=== PATIENT | female | born 1970 | race Caucasian/White ===

== ENCOUNTER 2018-07-20 15:03 | Outpatient (REF) | payer MEDICAID, SELFPAY ==
--- NOTE | 2018-07-20 14:10 | PAPFT_PTH ---
PATIENT: Violette Trevizo LOC: [facility] U#:[id number] AGE/SX: 48/F ROOM: RE07/20/[address]: RIP Norman : 1970 BED: DIS: 07/20/2018 SPEC #: [id number] RECD: 07/20/18 17:03 STATUS: JOAO MARINELLI #: [id number] LEONELA: 07/20/18 14:[address]: Mckenzie Shirley DEPT: [facility] Cytology RECD BY: Rosalind Song ENTERED: 07/20/18 17:04 SP TYPE: PAPFT ANN MARIE DR: Teena Quiroz MD Tissues: 1 - CX/ENDOCX FOR PAP SMEARS Procedures: PAP THIN PREP/UVM Screening HPV DNA PROBE Comments: [id number]
== END 2018-07-20 15:23 ==
LOC: LBN 15:03
PROVIDERS: PCP Family Medicine; Visit Provider Nurse Practitioner Family
DX: Z12.4 Encounter for screening for malignant neoplasm of cervix (principal); Z11.51 Encounter for screening for human papillomavirus (HPV)
CPT/HCPCS: 88142; 87624

== ENCOUNTER 2018-08-06 00:50 | Outpatient (CLI) | payer MEDICAID, SELFPAY ==
--- NOTE | 2018-08-06 10:30 | DI.MAMMO_ITS ---
SYMPTOM/DIAGNOSIS: SCREENING, Z12.31 MAMMOGRAMS: Mammograms were interpreted according to the usual protocol including computer analysis with CAD system, tomosynthesis and C view imaging. Comparison with prior examinations. Breast density C. No suspicious masses or microcalcifications are seen. There is no definite evidence of malignancy. IMPRESSION: Negative mammogram. Routine screening is recommended. Category I. MQSA ASSESSMENT OF FINDINGS: Negative. Category 1. Patient will receive a letter notifying them of these results. Bi-RADS category C. The breasts are heterogeneously dense, which may obscure small masses.
== END 2018-08-06 01:10 ==
PROVIDERS: PCP Family Medicine; Visit Provider Nurse Practitioner Family
DX: Z12.31 Encounter for screening mammogram for malignant neoplasm of breast (principal)
CPT/HCPCS: 77063; 77067

== ENCOUNTER 2019-01-30 13:11 | Emergency (ER) | payer MEDICAID, SELFPAY ==
[2019-01-30 13:13] VITALS: BP 122/77; PULSE 68; RESP 16; O2SAT 98
--- NOTE | 2019-01-30 13:23 | DI.RAD_ITS ---
SYMPTOMS/DIAGNOSIS: PAIN S/P INVERSION RIGHT ANKLE: Comparison is made with right foot dated November,. No fracture or ankle mortise widening is seen. There is some spurring at the anterior aspect of the distal tibia. No talar dome defect is seen. IMPRESSION: No acute abnormality.
--- NOTE | 2019-01-30 13:23 | W.ED.GENAD ---
Discharge Plan Disposition Patient Disposition: HOME Condition: Stable Discharge Details Chief Complaint: Orthopedic Clinical Impression: Right ankle sprain Primary Care Provider: Teena Quiroz ED Provider: Ritesh Jung Home Meds and New Rx's Prescriptions: Continued norethindrone acetate 5 mg tablet 5 mg PO DAILY Qty: 90 RF: 3 cyclobenzaprine 5 mg tablet 5 mg PO TID PRN (Reason: muscle spasm) Qty: 60 RF: 0 multivitamin 1 EACH tablet 1 ea PO DAILY RF: 0 loratadine [Claritin Liqui-Gel] 10 MG capsule 10 mg PO DAILY Qty: 90 RF: 4 ibuprofen 600 mg tablet 600 mg PO TID PRN (Reason: pain) Qty: 90 RF: 3 calcium carbonate [Calcium 600] 600 mg calcium (1,500 mg) tablet 600 mg PO BID Qty: 60 RF: 2 cholecalciferol (vitamin D3) 2,000 unit capsule 4,000 unit PO DAILY Qty: 60 RF: 2 cetirizine 10 mg tablet 10 mg PO DAILY Qty: 30 RF: 11 ascorbic acid (vitamin C) [Vitamin C] 500 MG tablet,chewable 500 mg PO DAILY RF: 0 Discharge Instructions Instructions: Ankle Sprain (ED) Additional Instructions: if still in pain in a week see your primary care provider for reevaluation Medical Decision Making 48 yo female comes in with right ankle pain. She was waering sandles at work and got out of a truck and inverted the ankle. HAs had pain over lateral malleolus since so came here. Denies loc or head pain and no neck pain. Has full rom of the ankle withpain over lateral malleolus. Will xray to eval for fx, likely sprain. intact sensation and pulses. no acute findings on my read and wet read by Dr. Bolden. Advised f/u with pcp in a week and return precautions given. is bearing weight with minimal limp so doubt lisfranc injury Differential Diagnosis sprain, strain, fx Imaging Data Radiologic Study: Attestation: I personally reviewed and interpreted this imaging study as follows: Imaging: X-Ray Radiologist's impression: no acute findings HPI General Mode of arrival: ambulatory. Date/Time Provider Initiated Documentation: 01/30/19 13:16. Limitations to Documentation: no limitations. Information obtained by: patient. History of Present Illness 48 year old F presents to the emergency department with the chief complaint of pain s/p rolling ankle on Monday, described as moderate, Quality is described as aching, and is localized to the right and lower extremity. Patient reports no radiation. Patient started experiencing this day(s) (3) and it has been constant. Rest improves symptom(s), Movement worsens symptoms . Patient notes no other symptoms.. Related Data Home Medications Medication Instructions Recorded Confirmed multivitamin 1 ea PO DAILY tab 11/06/12 01/30/19 ascorbic acid (vitamin C) [Vitamin 500 mg PO DAILY 08/30/14 01/30/19 C] loratadine [Claritin Liqui-Gel] 10 mg PO DAILY #90 tab 12/01/17 01/30/19 ibuprofen 600 mg tablet 600 mg PO TID PRN #90 tab 04/16/18 01/30/19 calcium carbonate 600 mg calcium 600 mg PO BID #60 tab 05/05/18 01/30/19 (1,500 mg) tablet cholecalciferol (vitamin D3) 2,000 4,000 unit PO DAILY #60 cap 05/05/18 01/30/19 unit capsule norethindrone acetate 5 mg tablet 5 mg PO DAILY #90 tab 07/20/18 01/30/19 cetirizine 10 mg tablet 10 mg PO DAILY #30 tab 12/19/18 01/30/19 cyclobenzaprine 5 mg tablet 5 mg PO TID PRN #60 tab 01/10/19 01/30/19 Previous Rx's Medication Instructions Recorded loratadine [Claritin Liqui-Gel] 10 mg PO DAILY #90 tab 12/01/17 ibuprofen 600 mg tablet 600 mg PO TID PRN #90 tab 04/16/18 calcium carbonate 600 mg calcium 600 mg PO BID #60 tab 05/05/18 (1,500 mg) tablet cholecalciferol (vitamin D3) 2,000 4,000 unit PO DAILY #60 cap 05/05/18 unit capsule norethindrone acetate 5 mg tablet 5 mg PO DAILY #90 tab 07/20/18 cetirizine 10 mg tablet 10 mg PO DAILY #30 tab 12/19/18 cyclobenzaprine 5 mg tablet 5 mg PO TID PRN #60 tab 01/10/19 Allergies Allergy/AdvReac Type Severity Reaction Status Date / Time cephalexin Allergy Intermediate RASH, LEGS Verified 01/30/19 13:16 RED AND HOT Penicillins AdvReac Mild YEAST Verified 01/30/19 13:16 INFECTION General Stated Complaint: Orthopedic CLAU: 4 Review of Systems Review of Systems All systems reviewed & are unremarkable except as noted in HPI and below Constitutional Denies chills, Denies fever(s) and Denies weakness ENT Denies change in voice Cardiovascular Denies chest pain and Denies dyspnea Respiratory Denies cough and Denies dyspnea Gastrointestinal Denies abdominal pain, Denies nausea and Denies vomiting Musculoskeletal Denies joint swelling Neurologic Denies weakness [facility] Medical History (Updated 07/20/18 @ 14:05 by Mckenzie Shirley NP) Anxiety (Chronic) Appendicitis (Resolved) Attention deficit hyperactivity disorder, combined type (Acute) Cervical high risk HPV (human papillomavirus) test positive (Acute 08/19/16) Contraception (Acute 07/17/15) IUD surveillance (Acute 02/18/14) 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 Low back pain (Acute) MRI-L5-S1 disc bulge Lumbago (Acute) MRI-L5-S1 disc bulge Nicotine addiction (Chronic) Seasonal allergic rhinitis (Acute 12/01/17) Smoker (Acute) Surgical History (Updated 07/20/18 @ 14:04 by Mckenzie Shirley NP) Appendectomy Social History Smoking/Tobacco Use Status: Current every day Tobacco Type: cigarettes Alcohol Intake: current Alcohol Intake frequency: a few times a month Drug use: Never Do you feel safe at home: Yes Do you feel safe in your relationship?: Yes Exam Const General: no acute distress Orientation: alert HENMT Head: normal to inspection Ears: external ears normal General nose exam: external nose normal Mouth: moist mucous membranes Eyes General: appearance normal, both eyes and all related structures Neck Neck: normal visual inspection Resp Effort & Inspection: normal respiratory effort and able to speak in complete sentences Cardio Rate: regular rate Skin General skin exam: no rashes or lesions noted Neuro General: alert and oriented x3 Extrem General: normal to inspection and full ROM Psych Mental Status: mental status grossly normal Course Vital Signs Pulse 68 01/30/19 13:13 Respiratory Rate 16 01/30/19 13:13 Blood Pressure 122/77 01/30/19 13:13 Pulse Oximetry 98 01/30/19 13:13 Pulse 68 01/30/19 13:13 Respiratory Rate 16 01/30/19 13:13 Respiratory Effort Non-Labored 01/30/19 13:16 Blood Pressure 122/77 01/30/19 13:13 Blood Pressure Position Sitting 01/30/19 13:13 Pulse Oximetry 98 01/30/19 13:13 Oxygen Delivery Method Room Air 01/30/19 13:13 Oxygen Flow Rate 0 01/30/19 13:13
== END 2019-01-30 14:30 | disposition home or self-care (01) ==
LOC: ER 14:18
PROVIDERS: Emergency Provider Emergency Medicine; PCP Family Medicine
DX: S93.401A Sprain of unspecified ligament of right ankle, initial encounter (principal); X50.9XXA Other and unspecified overexertion or strenuous movements or postures, initial encounter
CPT/HCPCS: 29515; 99283; 73610; L1902

== ENCOUNTER 2019-03-04 12:07 | Outpatient (CLI) | payer MEDICAID, SELFPAY ==
--- NOTE | 2019-03-04 12:30 | DI.RAD_ITS ---
EXAM: XR ANKLE RT COMPLETE INDICATION: pain S99.919A INJURY ANKLE. COMPARISON: XR ANKLE RT COMPLETE from 01/30/2019 TECHNIQUE: 2D digital imaging was performed. FINDINGS: Three views were obtained. The ankle mortise is well maintained. Minimal marginal osteophyte format ion the distal tibia noted. No other bony abnormality seen. IMPRESSION:
== END 2019-03-04 12:27 ==
PROVIDERS: PCP Family Medicine; Visit Provider Internal Medicine
DX: M25.571 Pain in right ankle and joints of right foot (principal); S99.911A Unspecified injury of right ankle, initial encounter; M25.771 Osteophyte, right ankle
CPT/HCPCS: 73610

== ENCOUNTER 2019-03-06 11:13 | Outpatient (CLI) | payer MEDICAID, SELFPAY ==
--- NOTE | 2019-03-06 13:46 | DI.MRI_ITS ---
EXAM: MR LOWER JOINT RT WO CLINICAL HISTORY: PAIN, SUBLUXATION OF RT ANKLE JOINT, S93.01XA. TECHNIQUE: Multiplanar multisequence MRI was performed. COMPARISON: XR ANKLE RT COMPLETE from 03/04/2019 FINDINGS: Marrow signal is normal. There is lateral soft tissue edema. The peroneal tendons appear intact. The Achilles as well as flexor and extensor tendons also appear intact. No talar dome defect is see n. IMPRESSION: Lateral soft tissue edema and joint effusion. No tendon tear is seen.
== END 2019-03-06 11:33 ==
PROVIDERS: PCP Family Medicine; Visit Provider Orthopaedic Surgery
DX: M25.571 Pain in right ankle and joints of right foot (principal); S93.01XA Subluxation of right ankle joint, initial encounter; M79.89 Other specified soft tissue disorders; M25.471 Effusion, right ankle
CPT/HCPCS: 73721

== ENCOUNTER 2019-03-11 10:44 | Day surgery (SDC) | payer MEDICAID, SELFPAY ==
[2019-03-11 11:12] VITALS: BP 126/65; PULSE 77; RESP 16; TEMP 36.7; O2SAT 98
[2019-03-11] MEDS: Lactated Ringers 1,000 ML 80 ML IV (11:40)
--- NOTE | 2019-03-11 15:17 | NUR.NOTE ---
Nursing Note: 1450: Pt. states she has been waiting a long time and is getting hangry , would like to go home and reschedule for another day when OR is not so busy. Dr. Lucas, and Hermann Castle RN notified.IV DCd. Pt. changed self and ambulated from DSU accompanied by daughters, Elvira and Soni.
== END 2019-03-11 14:50 | disposition home or self-care (01) ==
LOC: SUR 10:45
PROVIDERS: PCP Family Medicine; Visit Provider Orthopaedic Surgery
DX: Z53.09 Procedure and treatment not carried out because of other contraindication (principal)
CPT/HCPCS: 81025; 99211

== ENCOUNTER 2019-03-25 07:00 | Day surgery (SDC) | payer MEDICAID, SELFPAY ==
[2019-03-25 07:10] VITALS: BP 117/60; PULSE 85; RESP 17; TEMP 36.6; O2SAT 96
[2019-03-25] MEDS: Lactated Ringers 1,000 ML 80 ML IV (07:40)
--- NOTE | 2019-03-25 08:25 | PDOC.DSDIS_ITS ---
Discharge Plan Disposition Patient Disposition: HOME Condition: Good Discharge Details Reason For Visit: Release first dorsal extensor compartment L wrist Attending Provider: Ismael Lucas Primary Care Provider: Teena Quiroz Home Meds and New Rx's Prescriptions: New hydrocodone-acetaminophen 5-325 mg tablet 1 tab PO Q6H PRN (Reason: pain) Qty: 7 RF: 0 No Action norethindrone acetate 5 mg tablet 5 mg PO DAILY Qty: 90 RF: 3 cyclobenzaprine 5 mg tablet 5 mg PO TID PRN (Reason: muscle spasm) Qty: 60 RF: 0 calcium carbonate [Calcium 600] 600 mg calcium (1,500 mg) tablet 600 mg PO BID Qty: 60 RF: 2 cholecalciferol (vitamin D3) 2,000 unit capsule 4,000 unit PO DAILY Qty: 60 RF: 2 cetirizine 10 mg tablet 10 mg PO DAILY Qty: 30 RF: 11 ibuprofen 600 mg tablet 600 mg PO TID PRN (Reason: pain) Qty: 90 RF: 3 ascorbic acid (vitamin C) [Vitamin C] 500 MG tablet,chewable 500 mg PO DAILY RF: 0 acetaminophen [Tylenol Extra Strength] 500 mg Tablet 500 mg PO Q4H PRNRF: 0 Discharge Instructions Additional Instructions: Elevate L wrist above heart level as much as possible overnite tonite. Wiggle fingers L hand 10 times/hour when awake to prevent swelling. Keep dressings and splint dry and intact for 5 days. After 5 days, remove splint AND dressings and begin to move L wrist and thumb. May use L hand as much as your discomfort allows. May shower and get incision wet after you remove the dressings in 5 days. Leave incision uncovered when it is dry and sealed. Follow up with in 2 weeks. Take ibuprofen 600 mg 3 times/day for mild pain. Take hydrocodone for breakthru pain, if needed. Referrals: Ismael Lucas MD [ [facility] STAFF PHYSICIAN] - (f/u in 2 weeks.) Equipment/Supplies: Splint Activity:: Activity as Tolerated Diet:: As Tolerated Discharge Orders Discharge Orders: Discharge Order (Routine); Ordered 03/25/19 Ordered By: Ismael Lucas DS: Diagnosis Discharge Diagnosis (1) Radial styloid tenosynovitis [de quervain]: Status: Acute
[2019-03-25] MEDS: ceFAZolin 1 GM/50 ML BAG IVPB (09:20)
--- NOTE | 2019-03-25 10:04 | W.PM.DSUDISC ---
Discharge Plan Disposition Patient Disposition: HOME Condition: Good Discharge Details Reason For Visit: Synovectomy peroneal tendons R Attending Provider: Ismael Lucas Primary Care Provider: Teena Quiroz Home Meds and New Rx's Prescriptions: New oxycodone-acetaminophen 5-325 mg tablet 1 tab PO Q6H PRN (Reason: pain) Qty: 14 RF: 0 Continued norethindrone acetate 5 mg tablet 5 mg PO DAILY Qty: 90 RF: 3 cyclobenzaprine 5 mg tablet 5 mg PO TID PRN (Reason: muscle spasm) Qty: 60 RF: 0 calcium carbonate [Calcium 600] 600 mg calcium (1,500 mg) tablet 600 mg PO BID Qty: 60 RF: 2 cholecalciferol (vitamin D3) 2,000 unit capsule 4,000 unit PO DAILY Qty: 60 RF: 2 cetirizine 10 mg tablet 10 mg PO DAILY Qty: 30 RF: 11 ibuprofen 600 mg tablet 600 mg PO TID PRN (Reason: pain) Qty: 90 RF: 3 ascorbic acid (vitamin C) [Vitamin C] 500 MG tablet,chewable 500 mg PO DAILY RF: 0 acetaminophen [Tylenol Extra Strength] 500 mg Tablet 500 mg PO Q4H PRNRF: 0 Discharge Instructions Additional Instructions: Elevate R ankle when sitting. Use crutches and and fracture-walking brace to ambulate. May put as much weight on R foot as your pain allows. Keep dressings dry and intact until follow up. Follow up with in one week. Take ibuprofen 600 mg 3 times/day for inflammation and swelling. Take oxycodone, if needed, for breakthru pain. Referrals: Ismael Lucas MD [ [facility] STAFF PHYSICIAN] - (f/u in one week.) Equipment/Supplies: Partial Weight Bearing Crutches and Splint Activity:: Activity as Tolerated Remove Dressings/Wound Care:: Do Not Remove Shower/Bathe:: Cover Diet:: As Tolerated Discharge Orders Discharge Orders: Discharge Order (Routine); Ordered 03/25/19 Ordered By: Ismael Lucas DS: Diagnosis Discharge Diagnosis (1) Radial styloid tenosynovitis [de quervain]: Status: Acute (2) Peroneal tendinitis, right leg: Status: Acute
[2019-03-25 10:18] VITALS: BP 127/57; PULSE 84; RESP 24; TEMP 36.6; O2SAT 94
[2019-03-25 10:23] VITALS: BP 126/60; PULSE 84; RESP 25; TEMP 36.6; O2SAT 94
[2019-03-25 10:28] VITALS: BP 129/59; PULSE 94; RESP 17; TEMP 36.6; O2SAT 96
[2019-03-25 11:25] VITALS: BP 114/63; PULSE 81; RESP 16; TEMP 36.5; O2SAT 95
--- NOTE | 2019-03-26 17:30 | ROE_ITS ---
DATE OF PROCEDURE: March 25, 2019 PREOPERATIVE DIAGNOSIS: Peroneal tendonitis, right. POSTOPERATIVE DIAGNOSIS: Same. PROCEDURE: Exploration of peroneal tendons, right, with synovectomy. ANESTHESIA: General. SURGEON: Ismael Lucas M.D. LICENSED PHYSICAL THERAPIST ASSISTANT: Tramaine Gaviria INDICATIONS: This is a 48-year-old white female with a several month history of right lateral ankle pain. Clinical diagnosis was peroneal tendonitis. MRI scan did not show obvious tear of the tendons . She was immobilized with a fracture walking boot, which only provided temporary relief of pain. E xploration of the peroneal tendons was recommended to determine the exact pathology and hopefully pro vide a relief of her pain. The risks and complications of the procedure were explained to the patien t in detail preoperatively. PROCEDURE: The patient was taken to the operating room on 03/25/19. She was placed supine on the ope rating table and a general anesthetic was administered. She was then turned to the right lateral pos ition on the operating table. Her position was maintained by a pneumatic beanbag. A proximal tourni quet was applied to the right thigh and then the right foot, ankle and lower leg were prepped and mignon ped free in the usual sterile fashion. Under proximal tourniquet control, an incision was made paralleling the peroneal tendons and posterio r to the fibula, beginning at the distal tip of the fibula and extending proximally about 5 or 6 inch es. The incision was carried down to the peroneal tendon sheath. The peroneal tendon sheath was the n longitudinally incised, leaving a cuff of tendon sheath attached to the fibula for repair. There w as noted to be abundant and abnormal amount of synovial fluid that had collected in the peroneal tend on sheath. There was also an obvious increased amount of abnormal synovium present. A synovectomy w as then performed using a rongeur, scalpel and forceps. When the synovectomy was complete I then ins pected the peroneal tendons all the way down to where they passed beneath the tip of the fibula. I w as unable to see a tear in the tendon. The tendons looked pretty healthy to me. The wound was there fore irrigated with Betadine and saline solution. The wound margins were infiltrated with 0.5% Demetrio ine with an epinephrine solution. The peroneal tendon sheath was repaired with a running, interlocke d #2-0 Vicryl suture. The skin and subcu were approximated with interrupted #4-0 Nylon sutures. The wound was dressed with Xeroform gauze, sterile gauze 4x4's, ABD pads, wrapped with a Kerlix bandage and then wrapped with an JERICHO bandage. The tourniquet was released. There was no bleeding to the primitivo ssings. She was then placed in an air cast fracture walking brace. Her anesthesia was reversed with out complications. She was discharged to the recovery room in good condition. The patient was discharged home from the Day Surgery Unit when fully recovered from her general anest hesia. She was given instructions to try to elevate her right foot on 1 to 2 pillows as much as poss ible for the next 48 hours. She may be weightbearing as tolerated to the right foot with crutches an d her fracture walking brace. She is to keep the dressings dry and intact until she follows up in my office in one week for a wound check and dressing change. She is instructed to take ibuprofen 600 m g p.o. t.i.d. for the next ten days to decrease swelling and inflammation. She was given a prescript ion of Percocet 5/325, one tablet every six hours, as needed, for breakthrough pain.
== END 2019-03-25 11:58 | disposition home or self-care (01) ==
PROVIDERS: PCP Family Medicine; Visit Provider Orthopaedic Surgery
PROC: (CPT 28088; principal; 2019-03-25 08:30)
DX: M76.71 Peroneal tendinitis, right leg (principal); M25.571 Pain in right ankle and joints of right foot
CPT/HCPCS: 28088; 28086; J0131; J0690; J1100; J1885; J2250; J2405; J3010; L4361

== ENCOUNTER 2019-08-26 10:10 | Outpatient (REF) | payer MEDICAID, SELFPAY ==
--- NOTE | 2019-08-26 09:45 | PAPFT_PTH ---
PATIENT: Violette Trevizo LOC: [facility] U#:[id number] AGE/SX: 49/F ROOM: RE08/26/[address]: RIP Norman : 1970 BED: DIS: 08/26/2019 SPEC #: [id number] RECD: 08/26/19 17:06 STATUS: JOAO YVES #: [id number] LEONELA: 08/26/19 09:[address]: Mckenzie Shirley DEPT: [facility] Cytology RECD BY: Rosalind Song ENTERED: 08/26/19 17:07 SP TYPE: PAPFT ANN MARIE DR: Teena Quiroz MD Tissues: 1 - CX/ENDOCX FOR PAP SMEARS Procedures: PAP THIN PREP/UVM Screening HPV DNA PROBE Comments: [id number]
== END 2019-08-26 10:30 ==
LOC: LBN 10:10
PROVIDERS: PCP Family Medicine; Visit Provider Nurse Practitioner Family
DX: Z12.4 Encounter for screening for malignant neoplasm of cervix (principal); Z11.51 Encounter for screening for human papillomavirus (HPV)
CPT/HCPCS: 88142; 87624

== ENCOUNTER 2019-09-04 14:33 | Outpatient (REF) | payer MEDICAID, SELFPAY ==
--- NOTE | 2019-09-04 13:45 | CER_PTH ---
PATIENT: Violette Trevizo LOC: [facility] U#:[id number] AGE/SX: 49/F ROOM: RE09/04/[address]: Gene Houston MD : 1970 BED: DIS: 09/04/2019 SPEC #: [id number] RECD: 09/04/19 16:36 STATUS: JOAO REQ #: [id number] LEONELA: 09/04/19 13:[address]: Gene Houston DEPT: Surgical Specimen RECD BY: Marky Oropeza ENTERED: 09/04/19 16:38 SP TYPE: CER OTHR DR: Teena Quiroz MD Tissues: 1 - ENDOCERVICAL BX/CURRETTE Procedures: GROSS AND MICRO LEVEL 4 Comments: [id number]
== END 2019-09-04 14:53 ==
LOC: LBN 14:33
PROVIDERS: PCP Family Medicine; Visit Provider Obstetrics & Gynecology
DX: N88.8 Other specified noninflammatory disorders of cervix uteri (principal); R87.810 Cervical high risk human papillomavirus (HPV) DNA test positive
CPT/HCPCS: 88305; 87480; 87510; 87660

== ENCOUNTER 2019-11-12 11:50 | Outpatient (CLI) | payer MEDICAID, SELFPAY ==
--- NOTE | 2019-11-12 11:45 | DI.RAD_ITS ---
EXAM: XR WRIST RT COMPLETE CLINICAL HISTORY: right wrist pain; ?ulnar based cyst TECHNIQUE: COMPARISON: No exams were available for comparison FINDINGS: Three views were obtained. There are osseous bodies located at the radial and ulnar aspects of the c arpus. There is marked deformity of the navicular bone which may reflect an old injury. There are s evere degenerative changes at the lunate capitate joint. There is widening of the navicular lunate j oint. IMPRESSION: Carpal deformity and degenerative changes as described above.
== END 2019-11-12 12:10 ==
PROVIDERS: PCP Family Medicine; Referring Provider Family Medicine; Visit Provider Physician Assistant
DX: M25.531 Pain in right wrist (principal); M19.031 Primary osteoarthritis, right wrist
CPT/HCPCS: 73110

== ENCOUNTER 2020-09-22 11:43 | Emergency (ER) | payer MEDICAID, SELFPAY ==
[2020-09-22 11:57] VITALS: BP 115/73; PULSE 70; RESP 16; TEMP 36.3; O2SAT 97
--- NOTE | 2020-09-22 12:24 | ED.GENADUL_ITS ---
Discharge Plan Disposition Patient Disposition: HOME Condition: Stable Discharge Details Clinical Impression: Open wound, hand Primary Care Provider: Teena Quiroz ED Provider: Dale Dugan Home Meds and New Rx's Prescriptions: Continued estradiol [Estrace] 0.01 % (0.1 mg/gram) cream 1 gm VG .COMPLEX Qty: 42.5 RF: 3 naproxen [EC-Naproxen] 500 mg tablet,delayed release (DR/EC) 500 mg PO BID Qty: 30 RF: 0 methocarbamol 500 mg tablet 500 mg PO QID Qty: 30 RF: 0 cetirizine 10 mg tablet 10 mg PO DAILY PRN (Reason: allergy symptoms) Qty: 90 RF: 4 ibuprofen 600 mg tablet 600 mg PO TID PRN (Reason: pain) Qty: 90 RF: 3 calcium carbonate [Calcium 600] 600 mg calcium (1,500 mg) tablet 600 mg PO BID Qty: 60 RF: 2 norethindrone acetate 5 mg tablet 5 mg PO DAILY Qty: 90 RF: 3 fluconazole [Diflucan] 150 mg tablet 150 mg PO ONCE Qty: 2 RF: 3 cholecalciferol (vitamin D3) 2,000 unit capsule 4,000 unit PO DAILY Qty: 60 RF: 2 ascorbic acid (vitamin C) [Vitamin C] 500 MG tablet,chewable 500 mg PO DAILY RF: 0 acetaminophen [Tylenol Extra Strength] 500 mg Tablet 500 mg PO Q4H PRNRF: 0 Discharge Instructions Instructions: Acute Wound Care (ED) Additional Instructions: No signs of infection. Wounds are 5 days old, do not require any closure now. Tetanus status updated today. Keep the areas clean and dry, you may apply topical antibiotic ointment. Please watch for new or worsening symptoms and return to the ER for any concern Medical Decision Making 50-year-old female presents with right hand injury that occurred 5 days ago. Tetanus status not up-to-date after reviewing records. Will update tetanus today. Extremely low suspicion for acute bony abnormality, no indication for x- ray. There are no signs of infection, no clear indication for oral antibiotics. Discussed routine wound care and encourage return to the ER for new or worsening symptoms. Patient has no additional questions or concerns and is comfortable with this plan. Medical Records Medical records reviewed: Yes I reviewed the patient's medical records. HPI General Mode of arrival: ambulatory . Date/Time Provider Initiated Documentation: 09/22/20 12:07 . Limitations to Documentation: no limitations . Information obtained by: patient . HPI Narrative: This is a 50-year-old female, [id number], presenting for a wound check of the right hand. She reports that 5 days ago when opening up a garage door she cut her hand on a chain. She initially thoroughly cleaned the laceration but wonders now if she should have had sutures. Reports minimal discomfort to palpation or with movement but denies any other injury, numbness, tingling, weakness. Does not believe that her tetanus status is up-to-date. Related Data Home Medications Medication Instructions Recorded Confirmed ascorbic acid (vitamin C) [Vitamin 500 mg PO DAILY 08/30/14 09/22/20 C] cholecalciferol (vitamin D3) 50 4,000 unit PO DAILY #60 cap 05/05/18 09/22/20 mcg (2,000 unit) capsule acetaminophen [Tylenol Extra 500 mg PO Q4H PRN 03/11/19 09/22/20 Strength] estradiol 1 gm VG .COMPLEX #42.5 gm 09/04/19 09/22/20 methocarbamol 500 mg tablet 500 mg PO QID #30 tab 12/13/19 09/19/20 naproxen 500 mg tablet,delayed 500 mg PO BID #30 tab 12/13/19 09/19/20 release calcium carbonate 600 mg calcium 600 mg PO BID #60 tab 09/15/20 09/22/20 (1,500 mg) tablet cetirizine 10 mg tablet 10 mg PO DAILY PRN #90 tab 09/15/20 09/22/20 ibuprofen 600 mg tablet 600 mg PO TID PRN #90 tab 09/15/20 09/22/20 fluconazole 150 mg tablet 150 mg PO ONCE #2 tab 09/22/20 09/22/20 norethindrone acetate 5 mg tablet 5 mg PO DAILY #90 tab 09/22/20 09/22/20 Previous Rx's Medication Instructions Recorded cholecalciferol (vitamin D3) 50 4,000 unit PO DAILY #60 cap 05/05/18 mcg (2,000 unit) capsule estradiol 1 gm VG .COMPLEX #42.5 gm 09/04/19 methocarbamol 500 mg tablet 500 mg PO QID #30 tab 12/13/19 naproxen 500 mg tablet,delayed 500 mg PO BID #30 tab 12/13/19 release calcium carbonate 600 mg calcium 600 mg PO BID #60 tab 09/15/20 (1,500 mg) tablet cetirizine 10 mg tablet 10 mg PO DAILY PRN #90 tab 09/15/20 ibuprofen 600 mg tablet 600 mg PO TID PRN #90 tab 09/15/20 fluconazole 150 mg tablet 150 mg PO ONCE #2 tab 09/22/20 norethindrone acetate 5 mg tablet 5 mg PO DAILY #90 tab 09/22/20 Allergies Allergy/AdvReac Type Severity Reaction Status Date / Time cephalexin Allergy Intermediate RASH, LEGS Verified 09/22/20 12:00 RED AND HOT latex Allergy Intermediate Skin Rash Verified 09/22/20 12:00 Penicillins AdvReac Mild YEAST Verified 09/22/20 12:00 INFECTION General Stated Complaint: Laceration CLAU: 4 Review of Systems Constitutional Constitutional: Denies fever(s) Musculoskeletal Musculoskeletal: Denies arthralgias, Denies numbness, Reports stiffness and Denies tingling Integumentary/Breasts Skin/Breast: Denies erythema and Denies rash Neurologic Neurologic: Denies numbness and Denies tingling PFSH Medical History Anxiety Appendicitis Attention deficit hyperactivity disorder, combined type Cervical high risk HPV (human papillomavirus) test positive (08/19/16) Contraception (07/17/15) IUD surveillance (02/18/14) 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 Low back pain MRI-L5-S1 disc bulge Lumbago MRI-L5-S1 disc bulge Nicotine addiction Seasonal allergic rhinitis (12/01/17) Smoker Surgical History Appendectomy Hx of carpal tunnel repair Right Hx of removal of cyst left foot Family History Mother Pancreatic cancer Grandmother Breast cancer maternal Social History Smoking/Tobacco Use Status: Current every day Tobacco Type: cigarettes Smoking risk assessment performed?: Yes Alcohol Intake: current Alcohol Intake frequency: a few times a month Alcohol type: beer Drug use: Never Substance use type: does not use Details: alcohol: t-1, 3 beers Current gender identity: female Do you feel safe at home: Yes Do you feel safe in your relationship?: Yes Female Reproductive History Menstrual control method: progestin IUCD History History 2 Para 2 Hx # Term Pregnancies Multiple births Hx # Pregnancies Ectopic pregnancies AB induced Hx Number of Living Children AB spontaneous Exam Const General: cooperative, healthy appearing, comfortable and no acute distress Orientation: alert and awake HENMT Head: normal to inspection, normocephalic and atraumatic Eyes General: appearance normal, both eyes and all related structures Conjunctivae: conjunctivae normal Neck Neck: normal visual inspection, trachea midline and supple Resp Effort & Inspection: normal respiratory effort and able to speak in complete sentences Cardio Rate: regular rate Rhythm: regular rhythm Skin General skin exam: no rashes or lesions noted Neuro General: patient alert, patient awake, moves all extremities and no focal motor deficits Cognition: normal cognition Speech: speech normal Gait: normal gait Motor: muscle tone normal throughout Sensory Exam: no sensory deficits noted Extrem General: full ROM and capillary refill normal Other: Right hand, fifth, fourth, second digit with a well-appearing wound along the flexor aspect, distal to the DIP joint. There is no warmth, swelling, erythema, drainage. Neuro, vascular, tendon intact. No signs of secondary infection. Psych Appearance: grossly normal Mental Status: mental status grossly normal Course Vital Signs Vital signs: Vital Signs Temperature 36.3 C L 09/22/20 11:57 Pulse 70 09/22/20 11:57 Respiratory Rate 16 09/22/20 11:57 Blood Pressure 115/73 09/22/20 11:57 Pulse Oximetry 97 09/22/20 11:57 Temperature 36.3 C L 09/22/20 11:57 Temperature Source Skin 09/22/20 11:57 Pulse 70 09/22/20 11:57 Respiratory Rate 16 09/22/20 11:57 Respiratory Effort Non-Labored 09/22/20 11:57 Blood Pressure 115/73 09/22/20 11:57 Blood Pressure Position Sitting 09/22/20 11:57 Pulse Oximetry 97 09/22/20 11:57 Oxygen Delivery Method Room Air 09/22/20 11:57 Oxygen Flow Rate 0 09/22/20 11:57 Pain Level 0 09/22/20 12:15
== END 2020-09-22 13:06 | disposition home or self-care (01) ==
PROVIDERS: Emergency Provider Physician Assistant; PCP Family Medicine
DX: S61.411A Laceration without foreign body of right hand, initial encounter (principal); W26.8XXA Contact with other sharp object(s), not elsewhere classified, initial encounter
CPT/HCPCS: 90471; 99284; 99283

== ENCOUNTER 2020-09-22 12:15 | Outpatient (REF) | payer MEDICAID, SELFPAY ==
--- NOTE | 2020-09-22 11:00 | PAPFT_PTH ---
PATIENT: Violette Trevizo LOC: [facility] U#:[id number] AGE/SX: 50/F ROOM: RE09/22/[address]: RIP Norman : 1970 BED: DIS: 09/22/2020 SPEC #: [id number] RECD: 09/22/20 13:08 STATUS: JOAO REQ #: [id number] LEONELA: 09/22/20 11:[address]: Mckenzie Shirley DEPT: [facility] Cytology RECD BY: Rosalind Song ENTERED: 09/22/20 13:08 SP TYPE: PAPFT OTHR DR: Teena Quiroz MD Tissues: 1 - CX/ENDOCX FOR PAP SMEARS Procedures: PAP THIN PREP/UVM Screening HPV DNA PROBE Comments: [id number]
== END 2020-09-22 12:16 | disposition home or self-care (01) ==
LOC: LBN 12:15
PROVIDERS: PCP Family Medicine; Visit Provider Nurse Practitioner Family
DX: Z12.4 Encounter for screening for malignant neoplasm of cervix (principal); Z87.42 Personal history of other diseases of the female genital tract; Z11.51 Encounter for screening for human papillomavirus (HPV); R87.810 Cervical high risk human papillomavirus (HPV) DNA test positive
CPT/HCPCS: 88142; 87624

== ENCOUNTER 2020-09-28 01:55 | Outpatient (CLI) | payer MEDICAID, SELFPAY ==
--- NOTE | 2020-09-28 12:00 | DI.MAMMO_ITS ---
Exam(s) MAMMO SCREENING EXAM: MAMMO SCREENING CLINICAL HISTORY: screening. TECHNIQUE: Bilateral full field digital CC and MLO mammographic images were obtained with 3D tomosyn thesis and utilizing computer aided detection (CAD). COMPARISON: Prior mammograms dating back to 2012, the most recent being July 2018. FINDINGS: There are no new spiculated masses nor malignant appearing microcalcification groups. There is no significant architectural distortion nor skin thickening-retraction. IMPRESSION: No radiographic evidence of malignancy. BI-RADS Category 1 - Negative Breast Density - Category B - Scattered areas of fibroglandular density Breast density Category C or D implies that the patient has dense breast tissue. Dense breast tissue can make it harder to find cancer on a mammogram. Dense breast tissue is also associated with an incr eased risk of breast cancer. This information about the result of the mammogram report was provided to the patient to raise their awareness. Use this report when you speak with the patient about their risks for breast cancer, which includes their family history. At that time, you may recommend additional screening tests (Ultrasoun d or MRI) as these tests may add significant information. A negative radiographic report should not delay biopsy if a dominant or clinically suspicious mass is present. Up to ten percent of cancers are not identified on mammography. A negative report may reinforce clinical impression. Adenosis and dense breasts may obscure an underlying neoplasm. False positive reports average 6 to 10%. Patient will receive a letter notifying them of these results.
== END 2020-09-28 02:15 ==
PROVIDERS: PCP Family Medicine; Visit Provider Nurse Practitioner Family
DX: Z12.31 Encounter for screening mammogram for malignant neoplasm of breast (principal)
CPT/HCPCS: 77063; 77067

== ENCOUNTER 2020-10-23 10:57 | Outpatient (REF) | payer MEDICAID, SELFPAY ==
--- NOTE | 2020-10-23 10:30 | ENDO_PTH ---
PATIENT: Violette Trevizo LOC: [facility] U#:[id number] AGE/SX: 50/F ROOM: RE10/23/[address]: Helena Rushing : 1970 BED: DIS: 10/23/2020 SPEC #: [id number] RECD: 10/23/20 12:22 STATUS: JOAO REJuwan #: [id number] LEONELA: 10/23/20 10:[address]: Helena Rushing DEPT: Surgical Specimen RECD BY: Rosalind Song ENTERED: 10/23/20 12:23 SP TYPE: Endo OTHR DR: Teena Quiroz MD Tissues: 1 - ENDOCERVICAL BX/CURRETTE Procedures: GROSS AND MICRO LEVEL 4 P16 IPEX Comments: [id number]
== END 2020-10-23 10:58 | disposition home or self-care (01) ==
LOC: LBN 10:57
PROVIDERS: PCP Family Medicine; Visit Provider Obstetrics & Gynecology Gynecology
DX: R87.810 Cervical high risk human papillomavirus (HPV) DNA test positive (principal); N87.9 Dysplasia of cervix uteri, unspecified
CPT/HCPCS: 88305; 88342

== ENCOUNTER 2021-02-08 11:20 | Outpatient (REF) | payer MEDICAID, SELFPAY ==
--- NOTE | 2021-02-08 10:10 | SKI_PTH ---
PATIENT: Violette Trevizo LOC: N U#:[id number] AGE/SX: 50/F ROOM: RE02/08/[address]: Teena Quiroz MD : 1970 BED: DIS: 02/08/2021 SPEC #: [id number] RECD: 02/08/21 12:45 STATUS: JOAO REQ #: [id number] LEONELA: 02/08/21 10:[address]: Teena Quiroz DEPT: Surgical Specimen RECD BY: Rosalind Song Tissues: 1 - SKIN BIOPSY(SHAVE/PUNCH) Procedures: SKIN LEVEL 4 Comments: [id number]
== END 2021-02-08 11:21 | disposition home or self-care (01) ==
LOC: LBN 11:20
PROVIDERS: PCP Family Medicine; Referring Provider Family Medicine; Visit Provider Family Medicine
DX: L82.1 Other seborrheic keratosis (principal)
CPT/HCPCS: 88305

== ENCOUNTER 2021-03-01 09:35 | Outpatient (CLI) | payer MEDICAID, SELFPAY ==
--- NOTE | 2021-03-01 09:00 | DI.RAD_ITS ---
Exam(s) XR SHOULDER LT COMPLETE 2+V EXAM: XR SHOULDER LT COMPLETE 2+V CLINICAL HISTORY: L shoulder pain TECHNIQUE: COMPARISON: No exams were available for comparison FINDINGS: Three views were obtained. There are minimal marginal osteophytes of the humeral head and glenoid. Cartilaginous joint space of glenohumeral joint appears fairly well maintained. Mild hypertrophic ch anges noted at the AC joint. No other significant bony or soft tissue abnormality seen. IMPRESSION: Mild degenerative changes as described above. RADIATION DOSE DELIVERED: Total DLP
== END 2021-03-01 09:36 | disposition home or self-care (01) ==
LOC: DIORS 09:35
PROVIDERS: PCP Family Medicine; Referring Provider Family Medicine; Visit Provider Physician Assistant
DX: M25.512 Pain in left shoulder (principal); M19.012 Primary osteoarthritis, left shoulder
CPT/HCPCS: 73030

== ENCOUNTER 2021-08-31 17:57 | Outpatient (REF) | payer MEDICAID, SELFPAY ==
[2021-08-31 20:53] LABS: Bilirubin Negative (Negative); Blood Trace-intact (Negative); Clarity Clear (Clear); Glucose Negative (Negative); Ketones Negative (Negative); Leukocyte Esterase Negative (Negative); Nitrite Negative (Negative); Specific Gravity 1.015 (1.005-1.025); Urobilinogen 0.2 EU/dL (Up TO 0.2); pH 5.5 (5-8)
[2021-08-31 21:06] LABS: C & S Indicated? C&S Done As Ordered; Epithelial Cells Few HPF (Negative); RBC 0-2 HPF (0-2)
[2021-08-31 21:07] LABS: Bacteria Moderate HPF (Negative); Casts Negative LPF (Negative); Crystals Negative HPF (Negative); Mucus Negative (Negative); Other Cells Few Yeast (Negative)
== END 2021-08-31 17:58 | disposition home or self-care (01) ==
LOC: LBN 17:57
PROVIDERS: PCP Nurse Practitioner Family; Visit Provider Family Medicine
DX: N39.0 Urinary tract infection, site not specified (principal)
CPT/HCPCS: 81003; 81015; 87086

== ENCOUNTER 2021-11-12 14:48 | Outpatient (REF) | payer MEDICAID, SELFPAY ==
--- NOTE | 2021-11-12 14:15 | PAPFT_PTH ---
PATIENT: Violette Trevizo LOC: [facility] U#:[id number] AGE/SX: 51/F ROOM: RE11/12/[address]: RIP Norman : 1970 BED: DIS: 11/12/2021 SPEC #: [id number] RECD: 11/12/21 16:51 STATUS: JOAO REQ #: [id number] LEONELA: 11/12/21 14:[address]: Mckenzie Shirley DEPT: [facility] Cytology RECD BY: Rosalind Song ENTERED: 11/12/21 16:51 SP TYPE: PAPFT OTHR DR: Wolf Denise, TANK Tissues: 1 - CX/ENDOCX FOR PAP SMEARS Procedures: PAP THIN PREP/UVM Screening HPV DNA PROBE Comments: [id number]
== END 2021-11-12 14:49 | disposition home or self-care (01) ==
LOC: LBN 14:48
PROVIDERS: PCP Nurse Practitioner Family; Visit Provider Nurse Practitioner Family
DX: R87.810 Cervical high risk human papillomavirus (HPV) DNA test positive (principal)
CPT/HCPCS: 88142; 87624

== ENCOUNTER → 2023-01-06 00:26 | Outpatient (CLI) | payer MEDICAID, SELFPAY ==
--- NOTE | 2023-01-06 08:00 | DI.MAMMO_ITS ---
Exam(s) MAMMO SCREENING EXAM: MAMMO SCREENING CLINICAL HISTORY: screening,Z12.39. TECHNIQUE: Bilateral full field digital CC and MLO mammographic images were obtained with 3D tomosyn thesis and utilizing computer aided detection (CAD). COMPARISON: Prior mammograms were reviewed. FINDINGS: There has been no significant change in the appearance and distribution of the fibroglandular tissue. In the right breast there is a new noncalcified well-defined oval nodular density measuring 6 by 4 mm and located 2 cm in from the nipple as seen on the MLO view.. Will require spot compression view an d ultrasound. There are no malignant-appearing microcalcification groups is region or elsewhere in either breast. No new significant findings in the opposite-left breast. There is no significant architectural distortion nor skin thickening-retraction. IMPRESSION: 1. No radiographic evidence of malignancy in left breast. 2. New right breast nodular density measuring 6 x 4 mm located 2 cm in from the nipple. Spot amy li view and breast ultrasound recommended. BI-RADS Category 0 - Assessment Incomplete: Need additional imaging evaluation Breast Density - Category B - Scattered areas of fibroglandular density Breast density Category C or D implies that the patient has dense breast tissue. Dense breast tissue can make it harder to find cancer on a mammogram. Dense breast tissue is also associated with an incr eased risk of breast cancer. This information about the result of the mammogram report was provided to the patient to raise their awareness. Use this report when you speak with the patient about their risks for breast cancer, which includes their family history. At that time, you may recommend additional screening tests (Ultrasoun d or MRI) as these tests may add significant information. A negative radiographic report should not delay biopsy if a dominant or clinically suspicious mass is present. Up to ten percent of cancers are not identified on mammography. A negative report may reinforce clinical impression. Adenosis and dense breasts may obscure an underlying neoplasm. False positive reports average 6 to 10%. Patient will receive a letter notifying them of these results.
== END ==
PROVIDERS: PCP Nurse Practitioner Family; Visit Provider Nurse Practitioner Family
DX: Z12.31 Encounter for screening mammogram for malignant neoplasm of breast (principal)
CPT/HCPCS: 77063; 77067

== ENCOUNTER 2023-01-06 17:08 | Outpatient (CLI) | payer MEDICAID, SELFPAY ==
[2023-01-06 16:01] LABS: Abs Immature Grans 0.04 10^3/uL (0.0-0.06); Absolute Basophil Count 0.05 10^3/uL (0.0-0.2); Absolute Eosinophil Count 0.21 10^3/uL (0.0-0.7); Absolute Lymphocyte Count 3.37 10^3/uL (1.2-3.4); Absolute Monocyte Count 0.87 10^3/uL (0.1-0.8); Absolute Neutrophil Count 2.91 10^3/uL (1.2-6.7); Basophils % 0.7; Eosinophils % 2.8; HCT 45.9 % (36.0-46.0); HGB 16.2 g/dL (11.2-15.7); Immature Grans % 0.5; Lymphocytes % 45.2; MCH 31.2 pg (27.0-33.0); MCHC 35.3 % (32.0-36.0); MCV 88 fL (80-95); MPV 9.8 fL (8.0-11.0); Monocytes % 11.7; Neutrophils % 39.1; Platelet Count 287 10^3/uL (130-400); RBC 5.19 10^6/uL (3.93-5.22); RDW 12.9 % (11.7-14.6); RDW-SD 41.9 fL; WBC 7.45 10^3/uL (4.4-10.8)
[2023-01-06 16:40] LABS: Calculated LDL 160 mg/dL (<100); Cholesterol 206 mg/dL (<200); Estimated GFR 68.21 (mL/min/1.73m2); Ferritin 197 ng/mL (8-252); HDL Cholesterol 26 mg/dL (40-60); Potassium 3.7 mmol/L (3.5-5.1); Triglyceride 102 mg/dL (<150)
[2023-01-06 16:46] LABS: Iron 90 ug/dL (50-170); Total Iron Binding Capacity 246 ug/dL (250-450)
[2023-01-09 10:52] LABS: Transferrin 211 mg/dL (201-352)
== END 2023-01-06 17:09 | disposition home or self-care (01) ==
LOC: LBO 17:09
PROVIDERS: PCP Nurse Practitioner Family; Visit Provider Nurse Practitioner Family
DX: R53.83 Other fatigue (principal); Z79.1 Long term (current) use of non-steroidal anti-inflammatories (NSAID); Z13.220 Encounter for screening for lipoid disorders; Z13.1 Encounter for screening for diabetes mellitus
CPT/HCPCS: 36415; 80061; 82565; 82728; 83036; 83540; 83550; 84132; 84466; 85025

== ENCOUNTER → 2023-01-10 03:00 | Outpatient (CLI) | payer MEDICAID, SELFPAY ==
--- NOTE | 2023-01-10 | DI.US_ITS ---
Exam(s) MG MAMMO SCREEN CALL BACK UNI US BREAST RT COMPLETE EXAM: MG MAMMO SCREEN CALL BACK UNI-RIGHT AND COMPLETE RIGHT BREAST ULTRASOUND CLINICAL HISTORY: F/U MAMMO, NEW RT BREAST NODULAR DENSITY. TECHNIQUE: Unilateral spot mammographic images obtained with 3D tomosynthesisand utilizing computer aided detection (CAD). . Complete RIGHT breast Ultrasound was also performed, including all 4 quadrants, the retroareolar marbin on, and the ipsilateral axilla. COMPARISON: Prior mammograms were reviewed. This additional imaging was performed due to findings described on the recent screening mammogram of 01/06/2023. FINDINGS: DIAGNOSTIC MAMMOGRAM: Additional mammographic view performed todaydoes not dissipate the nodule. We proceeded with ultrasound COMPLETE RIGHT BREAST ULTRASOUND: Ultrasound performed today reveals a solitary finding which is at the 7 o'clock position and has appe arance of a septated partially hemorrhagic microcyst measuring 6 x4 mm. This corresponds to the new finding on the recent screening mammogram. There are no other focal ultrasound findings in all [address] Scanning of the ipsilateral right axilla reveals no significant adenopathy. IMPRESSION: 1. There is septated partially hemorrhagic microcyst at 7 o'clock position measuring 6 x 4 mm, corre sponding to the new nodule on the mammogram. Appropriate follow-up as discussed by myself with the patient today is repeat right breast ultrasound in 6 months to ensure stability.. The patient was informed of these findings and recommendations by myself prior to leaving the departm ent today. BI-RADS Category 3 - 6 month - Probably Benign Finding: Recommend follow-up mammography in 6 months Breast Density - Category B - Scattered areas of fibroglandular density Breast density Category C or D implies that the patient has dense breast tissue. Dense breast tissue can make it harder to find cancer on a mammogram. Dense breast tissue is also associated with an incr eased risk of breast cancer. This information about the result of the mammogram report was provided to the patient to raise their awareness. Use this report when you speak with the patient about their risks for breast cancer, which includes their family history. At that time, you may recommend additional screening tests (Ultrasoun d or MRI) as these tests may add significant information. A negative radiographic report should not delay biopsy if a dominant or clinically suspicious mass is present. Up to ten percent of cancers are not identified on mammography. A negative report may reinforce clinical impression. Adenosis and dense breasts may obscure an underlying neoplasm. False positive reports average 6 to 10%. Patient will receive a letter notifying them of these results.
== END ==
PROVIDERS: PCP Nurse Practitioner Family; Visit Provider Nurse Practitioner Family
DX: Z12.31 Encounter for screening mammogram for malignant neoplasm of breast (principal); R92.8 Other abnormal and inconclusive findings on diagnostic imaging of breast
CPT/HCPCS: 76642; 77063; 77067

== ENCOUNTER 2023-02-09 22:16 | Emergency (ER) | payer MEDICAID, SELFPAY ==
[2023-02-09 22:24] VITALS: BP 117/77; PULSE 98; RESP 16; TEMP 36.5; O2SAT 97
--- NOTE | 2023-02-09 22:28 | ED.GENADUL_ITS ---
Discharge Plan Disposition Patient Disposition: Home Discharge Details Clinical Impression: Cellulitis of left elbow Primary Care Provider: Wolf Denise ED Provider: Shawn Boles Home Meds and New Rx's Prescriptions: New sulfamethoxazole-trimethoprim [Bactrim DS] 800-160 mg tablet 1 tab PO BID Qty: 14 0RF Clotrimazole 3 Day 2 % cream 1 appful vaginal QHS 3 Days Qty: 21 0RF No Action methocarbamol 500 mg tablet 500 mg PO QID PRN (Reason: muscle pain) Qty: 30 0RF calcium carbonate [Calcium 600] 600 mg calcium (1,500 mg) tablet 600 mg PO BID Qty: 90 3RF ibuprofen 800 mg tablet 800 mg PO TID PRN (Reason: pain) Qty: 90 3RF Hold Instructions: noncompliant with labs hydrocortisone acetate 1 % cream 1 applic topical TID PRN (Reason: skin irritation) Qty: 28.4 0RF estradiol [Estrace] 0.01 % (0.1 mg/gram) cream 1 g VG .COMPLEX Rx Instructions: 1 g vaginal three times weekly at bedtime.; for 14 days fluconazole [Diflucan] 150 mg tablet 150 mg PO ONCE Qty: 1 3RF Rx Instructions: as a single dose cholecalciferol (vitamin D3) 2,000 unit capsule 4,000 unit PO DAILY Qty: 60 2RF norethindrone acetate 5 mg tablet 5 mg PO DAILY Qty: 90 3RF Rx Instructions: 1 tab PO daily cetirizine 10 mg tablet 10 mg PO DAILY PRN (Reason: allergy symptoms) Qty: 90 3RF fluoxetine 10 mg capsule 10 mg PO DAILY Qty: 90 3RF fluticasone propionate [Flonase Allergy Relief] 50 mcg/actuation spray,suspension 2 spray intranasal DAILY PRN (Reason: nasal congestion) Qty: 16 11RF Rx Instructions: administer 2 sprays into each nostril ascorbic acid (vitamin C) [Vitamin C] 500 MG tablet,chewable 500 mg PO DAILY acetaminophen [Tylenol Extra Strength] 500 mg Tablet 500 mg PO Q4H PRN Discharge Instructions Instructions: Cellulitis (ED) Additional Instructions: At this time you have a small infection on your left elbow. Please take the Bactrim as directed. Please make sure to take a yogurt with live cultures or probiotic while taking this to prevent any diarrhea. You have been given a prescription of clotrimazole cream in case you do develop a yeast infection. If you notice any worsening of your symptoms, or any new symptoms such as vomiting, diarrhea, fever, chills, shortness of breath, chest pain, numbness, weakness, or fainting , please return immediately to the emergency department for reevaluation. Please follow up with your primary care provider as soon as possible for reassessment and reevaluation. As always, it was a pleasure participating in your medical care today. Referrals: Wolf Denise, [employer] [Primary Care Provider] - Medical Decision Making 52-year-old female presents today for evaluation of a lesion on her left elbow. Patient states it began 2 to 3 days ago, has gotten red, slightly swollen, and tender to the touch. She denies any pain in her actual elbow with movement. She denies any fever or chills. No other complaints at this time. She denies any trauma or bites otherwise Exam demonstrates evidence of a mild cellulitis over the left olecranon. No evidence of large bursitis, or septic joint whatsoever. Cellulitis appears to be well contained to an area with a diameter of about 1.5 cm. No fluctuance to suggest abscess that needs draining. At this time we will treat with Bactrim, discussed red flags for which to return. We will give a bottle here and a prescription for home use. I have extensively reviewed the treatment plan and discharge instructions with the patient. I have addressed all patient concerns at this time. The patient was made aware of what symptoms to monitor for that would warrant a return to the emergency department. Discussed the plan with the patient, they demonstrate verbal understanding and agreement with our assessment and plan at this time. The documentation in this chart was dictated using [employer] dictation software. Please excuse any dictation errors. HPI General Date/Time Provider Initiated Documentation: 02/09/23 22:27 . HPI Narrative: 52-year-old female presents today for evaluation of a lesion on her left elbow. Patient states it began 2 to 3 days ago, has gotten red, slightly swollen, and tender to the touch. She denies any pain in her actual elbow with movement. She denies any fever or chills. No other complaints at this time. She denies any trauma or bites otherwise Related Data Home Medications Medication Instructions Recorded Confirmed ascorbic acid (vitamin C) 500 mg 500 mg PO DAILY 08/30/14 02/09/23 chewable tablet (Vitamin C) cholecalciferol (vitamin D3) 50 4,000 unit PO DAILY #60 caps 05/05/18 02/09/23 mcg (2,000 unit) capsule acetaminophen 500 mg tablet 500 mg PO Q4H PRN 03/11/19 02/09/23 (Tylenol Extra Strength) calcium carbonate 600 mg calcium 600 mg PO BID #90 tabs 08/20/21 02/09/23 (1,500 mg) tablet (Calcium) methocarbamol 500 mg tablet 500 mg PO QID PRN muscle pain #30 08/20/21 02/09/23 tabs estradiol 0.01% (0.1 mg/gram) 1 g vaginal .COMPLEX 08/31/21 02/09/23 vaginal cream (Estrace) fluconazole 150 mg tablet 150 mg PO ONCE #1 tab 11/12/21 02/09/23 (Diflucan) hydrocortisone acetate 1 % topical 1 applic topical TID PRN skin 12/22/21 02/09/23 cream irritation #28.4 grams norethindrone acetate 5 mg tablet 5 mg PO DAILY #90 tabs 07/28/22 02/09/23 cetirizine 10 mg tablet 10 mg PO DAILY PRN allergy 07/29/22 02/09/23 symptoms #90 tabs ibuprofen 800 mg tablet 800 mg PO TID PRN pain #90 tabs 12/28/22 02/09/23 fluoxetine 10 mg capsule 10 mg PO DAILY #90 caps 01/04/23 02/09/23 fluticasone propionate 50 2 spray intranasal DAILY PRN nasal 01/04/23 02/09/23 mcg/actuation nasal congestion #16 grams spray,suspension (Flonase Allergy Relief) clotrimazole 2 % vaginal cream 1 appful vaginal QHS 3 days #21 02/09/23 (Clotrimazole 3 Day) grams sulfamethoxazole 800 1 tab PO BID #14 tabs 02/09/23 mg-trimethoprim 160 mg tablet (Bactrim DS) Previous Rx's Medication Instructions Recorded cholecalciferol (vitamin D3) 50 4,000 unit PO DAILY #60 caps 05/05/18 mcg (2,000 unit) capsule calcium carbonate 600 mg calcium 600 mg PO BID #90 tabs 08/20/21 (1,500 mg) tablet (Calcium) methocarbamol 500 mg tablet 500 mg PO QID PRN muscle pain #30 08/20/21 tabs fluconazole 150 mg tablet 150 mg PO ONCE #1 tab 11/12/21 (Diflucan) hydrocortisone acetate 1 % topical 1 applic topical TID PRN skin 12/22/21 cream irritation #28.4 grams norethindrone acetate 5 mg tablet 5 mg PO DAILY #90 tabs 07/28/22 cetirizine 10 mg tablet 10 mg PO DAILY PRN allergy 07/29/22 symptoms #90 tabs ibuprofen 800 mg tablet 800 mg PO TID PRN pain #90 tabs 12/28/22 fluoxetine 10 mg capsule 10 mg PO DAILY #90 caps 01/04/23 fluticasone propionate 50 2 spray intranasal DAILY PRN nasal 01/04/23 mcg/actuation nasal congestion #16 grams spray,suspension (Flonase Allergy Relief) clotrimazole 2 % vaginal cream 1 appful vaginal QHS 3 days #21 02/09/23 (Clotrimazole 3 Day) grams sulfamethoxazole 800 1 tab PO BID #14 tabs 02/09/23 mg-trimethoprim 160 mg tablet (Bactrim DS) Allergies Allergy/AdvReac Type Severity Reaction Status Date / Time cephalexin Allergy Intermediate RASH, LEGS Verified 02/09/23 22:27 RED AND HOT latex Allergy Intermediate Skin Rash Verified 02/09/23 22:27 Penicillins AdvReac Mild YEAST Verified 02/09/23 22:27 INFECTION General Stated Complaint: Orthopedic CLAU: 4 Review of Systems All systems reviewed & are unremarkable except as noted in HPI and below PFSH All Active Problems Cellulitis of left elbow (Acute) 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 noted in 2014 at time of appendectomy Peroneal tendinitis, right leg (Acute 03/25/19) s/p exploration and synovectomy Vaginal high risk human papillomavirus (HPV) DNA test positive (Acute 04/20/02) 2020 pos. HPV Smoker (Acute) 07/2021, 1/2 ppd, about 15 pk yr hx Seasonal allergic rhinitis (Acute 12/01/17) Low back pain (Acute) MRI-L5-S1 disc bulge Attention deficit hyperactivity disorder, combined type (Acute) Anxiety (Chronic) Medical History Appendicitis Surgical History Appendectomy Hx of carpal tunnel repair Right Hx of removal of cyst left foot Family History Mother Pancreatic cancer Grandmother Breast cancer maternal Social History Smoking/Tobacco Use Status: Current every day Tobacco Type: cigarettes Quit status: considering quitting Second Hand Exposure: Yes Smoking risk assessment performed?: Yes Alcohol Intake: current Alcohol Intake frequency: a few times a week Drug use: Never Substance use type: does not use Counseling given: No Details: alcohol: t-1, 3 beers Housing: house Do you need help understanding health information?: Never Pets and animals: Yes Pets and animals: cat(s) and dog(s) Sexually active: No Do you think of yourself as: straight/heterosexual Current gender identity: female What is your relationship status?: How often do you talk on the phone with friends or family?: three or more times per week How often do you get together with friends or relatives?: three or more times per week How often do you attend worship or druze services?: 1-3 times per year Do you belong to any clubs or organized social groups?: no Panel score (0-1 are the most socially isolated patients): 2 Glo/Yazdanism: [employer] Special glo needs: No Seatbelt use: always Helmet use: No 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 3.ENT: Atraumatic external nose and ears. Moist MM. Neck: Symmetric, trachea midline, No thyromegaly. 4.CVS: +S1/S2, No murmurs or gallops. Peripheral pulses 2+ and equal in all extremities. Brisk capillary refill in all extremities. 5.RESP: Unlabored respiratory effort. Clear to auscultation bilaterally. No wheezes rales or rhonchi 6.GI: Soft, Nontender/Nondistended, No hepatosplenomegaly. No guarding or rebound. 7.MSK: Normocephalic/Atraumatic, Extremities w/o deformity. Patient's left elbow demonstrates a small area of erythema over the olecranon. It does not spread to the rest of the elbow. No pain or tenderness in the actual elbow joint. It does appear to be a small scab. No large area of fluctuance. Mild warmth overall of this area. 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 Sensation grossly intact, no focal neurologic deficits. 10.Psych: (AAO) x3. Appropriate mood and affect Course Vital Signs Vital signs: Vital Signs Temperature 36.5 C 02/09/23 22:24 Pulse 98 H 02/09/23 22:24 Respiratory Rate 16 02/09/23 22:24 Blood Pressure 117/77 02/09/23 22:24 Pulse Oximetry 97 02/09/23 22:24 Temperature 36.5 C 02/09/23 22:24 Pulse 98 H 02/09/23 22:24 Respiratory Rate 16 02/09/23 22:24 Respiratory Effort Normal 02/09/23 22:24 Blood Pressure 117/77 02/09/23 22:24 Blood Pressure Position Sitting 02/09/23 22:24 Pulse Oximetry 97 02/09/23 22:24 Oxygen Delivery Method Room Air 02/09/23 22:24 Oxygen Flow Rate 0 02/09/23 22:24
[2023-02-09] MEDS: Sulfameth/Trimeth DS, 2 TABS/BTL 1 TAB PO (22:42)
== END 2023-02-09 22:47 | disposition home or self-care (01) ==
PROVIDERS: Emergency Provider Student in an Organized Health Care Education/Training Program; PCP Nurse Practitioner Family
DX: L03.114 Cellulitis of left upper limb
CPT/HCPCS: 99283

== ENCOUNTER → 2023-07-18 02:30 | Outpatient (CLI) | payer MEDICAID, SELFPAY ==
--- NOTE | 2023-07-18 06:36 | DI.US_ITS ---
Exam(s) US BREAST RT LIMITED EXAM: US BREAST RT LIMITED CLINICAL HISTORY: 3-6 mo f/u,r92.8,microcyst rt,f/u mammo 01/10/23,z09 TECHNIQUE: Ultrasound right breast performed using standard protocol. COMPARISON: MG MG MAMMO SCREENING from 01/06/2023 US US BREAST RT COMPLETE from 01/10/2023 MG MG MAMMO SCREEN CALL BACK UNI from 01/10/2023 FINDINGS: Decreased size of previously noted cyst in the subareolar region, now measuring 4 x 2 x 3 millimeters . No suspicious findings. IMPRESSION: No sonographically suspicious finding. BI-RADS Category 2 - Benign Findings Recommend bilateral screening mammography, due in December 2023. DATA REPOSITORY:
== END ==
PROVIDERS: PCP Nurse Practitioner Family; Visit Provider Nurse Practitioner Family
DX: R92.8 Other abnormal and inconclusive findings on diagnostic imaging of breast (principal); N60.01 Solitary cyst of right breast; N60.81 Other benign mammary dysplasias of right breast
CPT/HCPCS: 76642

== ENCOUNTER 2023-07-19 10:53 | Day surgery (SDC) | payer MEDICAID, SELFPAY ==
[2023-07-19 11:02] VITALS: BP 109/60; PULSE 76; RESP 18; TEMP 36.7; O2SAT 99
[2023-07-19] MEDS: Sodium Bicarbonate 50 MEQ/50 ML VIAL (12:20)
[2023-07-19] MEDS: Lidocaine 1% Multi-Dose W/EPI 1/100,000 50 ML VIAL (12:20)
--- NOTE | 2023-07-19 12:24 | W.PM.DSUDISC ---
Date of service: 07/19/23 Time of Service: 12:24 Discharge Plan Disposition Patient Disposition: Home Condition: Good Discharge Details Reason For Visit: R wrist cyst excision Attending Provider: Irving Mooney Primary Care Provider: Wolf Denise Home Meds and New Rx's Prescriptions: New acetaminophen 500 mg tablet 1,000 mg PO TID Qty: 90 0RF Continued methocarbamol 500 mg tablet 500 mg PO QID PRN (Reason: muscle pain) Qty: 30 0RF calcium carbonate [Calcium 600] 600 mg calcium (1,500 mg) tablet 600 mg PO BID Qty: 90 3RF ibuprofen 800 mg tablet 800 mg PO TID PRN (Reason: pain) Qty: 90 3RF Hold Instructions: noncompliant with labs hydrocortisone acetate 1 % cream 1 applic topical TID PRN (Reason: skin irritation) Qty: 28.4 0RF estradiol [Estrace] 0.01 % (0.1 mg/gram) cream 1 g VG .COMPLEX Rx Instructions: 1 g vaginal three times weekly at bedtime.; for 14 days fluconazole [Diflucan] 150 mg tablet 150 mg PO ONCE Qty: 1 3RF Rx Instructions: as a single dose cholecalciferol (vitamin D3) 2,000 unit capsule 4,000 unit PO DAILY Qty: 60 2RF norethindrone acetate 5 mg tablet 5 mg PO DAILY Qty: 90 3RF Rx Instructions: 1 tab PO daily cetirizine 10 mg tablet 10 mg PO DAILY PRN (Reason: allergy symptoms) Qty: 90 3RF fluoxetine 10 mg capsule 10 mg PO DAILY Qty: 90 3RF fluticasone propionate [Flonase Allergy Relief] 50 mcg/actuation spray,suspension 2 spray intranasal DAILY PRN (Reason: nasal congestion) Qty: 16 11RF Rx Instructions: administer 2 sprays into each nostril ascorbic acid (vitamin C) [Vitamin C] 500 MG tablet,chewable 500 mg PO DAILY Discontinued acetaminophen [Tylenol Extra Strength] 500 mg Tablet 500 mg PO Q4H PRN Discharge Instructions Additional Instructions: Wrist Cyst Discharge Instructions Activity: You should keep the hand elevated as much as possible for the first few days. You may use your hand/fingers as tolerated but avoid trying to do too much too soon. You may perform light activities with the splint in place. Dressing/Cast: You may remove the dressings after72 hours [address] a Band-Aid over the incision if desired. You may shower and get the incision wet after 72 hours. Medications: - You should take Tylenol and Ibuprofen for baseline pain control. - You may apply ice over the wrist. Follow-up: 7-10 days Stand Alone Forms: Jorge Luna ([facility]) Referrals: Irving Mooney MD [ [facility] STAFF PHYSICIAN] - Activity:: Activity as Tolerated Remove Dressings/Wound Care:: 72 hours Shower/Bathe:: 72 hours Diet:: As Tolerated Discharge Orders Discharge Orders: Discharge Order (Routine); Ordered 07/19/23 Ordered By: Shekhar Chanel
[2023-07-19 12:43] VITALS: BP 97/65; PULSE 67; RESP 18; TEMP 36.2; O2SAT 97
[2023-07-19] MEDS: Acetaminophen 325 MG TAB 650 MG PO (12:48)
[2023-07-19 13:14] VITALS: BP 110/51; PULSE 63; RESP 16; TEMP 36.1; O2SAT 99
--- NOTE | 2023-07-19 22:43 | ROE_ITS ---
Date of service: 07/19/23 Time of Service: 12:30 Operative Note Operative Note DATE OF PROCEDURE: 07/19/23 PRE-OP DIAGNOSIS: Right Wrist Ganglion Cyst POST-OP DIAGNOSIS: same PROCEDURE: Excision of wrist ganglion cyst - RIGHT wrist SURGEON: Irving Mooney ANESTHESIA TYPE: Local By Surgeon Refer to Anesthesia Record ESTIMATED BLOOD LOSS: 0 PATHOLOGY: none sent COMPLICATIONS: None Patient was transported to: same day Patient's condition: stable Indications: Violette is a 53 year old female who I have seen for a wrist ganglion cyst. It has continued to be bothersome despite some conservative options. Its size and interference with activities continues to cause problems. Therefore, I offered excision of the cyst. I discussed the risks to include bleeding, infection, pain, stiffness, damage to nerve and vessels, recurrence. Despite these risks, she elects to proceed. Procedure Description: Violette was greeted in the preoperative holding area. Identity was confirmed and the correct site was identified and marked. Consent was reviewed the patient and signed. History and physical was updated. The patient to take not to the operating room placed in supine position. All bony prominences were well- padded. The arms and prepped with ChloraPrep and draped in a standard fashion. The surgical site was marked on the skin and injected with 1% lidocaine with epinephrine buffered with sodium bicarbonate. The skin was incised sharply. Deeper dissection was carried out with tenotomy scissors and careful attention to vascular branches in this area. The mass was identified and protected with dissection carried around. Once was fully identified it was deflated. There is notable fluid within the cyst structure but as well as to hard keratinized nodules, likely representing epidermoid cyst. Further debridement was performed of this area. There is no major arterial bleeding in any other persistent ooze. The wound was dry. The deep layer was reapproximated with a 3-0 Vicryl. The skin was closed with a running 4-0 Monocryl followed by skin glue, gauze, and Sunny wrap. At the end the case all counts were correct. The patient was awakened from anesthesia and taken to the PACU in stable condition. There were no noted complications.
== END 2023-07-19 13:24 | disposition home or self-care (01) ==
PROVIDERS: PCP Nurse Practitioner Family; Visit Provider Student in an Organized Health Care Education/Training Program
PROC: (CPT 25111; principal; 2023-07-19 13:45)
DX: M67.431 Ganglion, right wrist (principal)
CPT/HCPCS: 25111; J2004

== ENCOUNTER 2023-08-10 12:23 | Outpatient (CLI) | payer MEDICAID, SELFPAY ==
[2023-08-10 17:49] LABS: Estradiol 28 pg/mL (See Note); FSH 16.7 mIU/mL (See Note); Progesterone <0.2 ng/mL (See Table)
== END 2023-08-10 12:24 | disposition home or self-care (01) ==
LOC: LBO 12:23
PROVIDERS: PCP Nurse Practitioner Family; Visit Provider Obstetrics & Gynecology Gynecology
DX: N95.1 Menopausal and female climacteric states (principal)
CPT/HCPCS: 36415; 82670; 83001; 84144

== ENCOUNTER → 2023-09-28 00:32 | Outpatient (CLI) | payer MEDICAID, SELFPAY ==
--- NOTE | 2023-09-28 | DI.MRI_ITS ---
Exam(s) MR LUMBAR SPINE WO EXAM: MR LUMBAR SPINE WO CLINICAL HISTORY: M54.41,G89.29 Lumbago w/ sciatica rt side,chronic pain, Worsening pain. TECHNIQUE: Multiplanar multisequence MRI of the Lumbar spine was performed. COMPARISON: CR LUMBAR SPINE COMPLETE from 04/14/2014 CT ABD PELVIS WITH CONTRAST from 08/30/2014 FINDINGS: Bones: The last intervertebral disc space is designated the L5/S1 level for the numbering purpose of this examination. The vertebral body heights are well maintained. Alignment is satisfactory. The si gnal characteristics are unremarkable. Cord: The conus tip ends at the T12 level. It is of normal size and signal intensity. T12-L1: No disc herniations or bulges are present. No central spinal canal or neural foraminal stenos is. L1-2: No disc herniations or bulges are present. No central spinal canal or neural foraminal stenosis . L2-3: No disc herniations or bulges are present. No central spinal canal or neural foraminal stenosis . L3-4: No disc herniations or bulges are present. No central spinal canal or neural foraminal stenosis . L4-5: There is mild eccentric bulging of the disc laterally on the left. There is a 0.5 cm synovial cyst arising from the left facet joints and projecting into the spinal canal. It causes moderate meño tral spinal canal stenosis. It would appear to impinge upon the left L5 nerve root. There is mild n arrowing of the left neural foramen. No significant right neural foraminal stenosis. L5-S1: There is a mild diffuse disc bulge. There are degenerative changes of the facets, right great er than left. No significant central spinal canal stenosis is seen.No neural foraminal stenosis is p resent. Soft tissues: The visualized SI joints and sacrum are well maintained. The paraspinal soft tissues ar e unremarkable. IMPRESSION: 1. At L4-L5 there is a 5 mm synovial cyst arising from the left facet joints and projecting into the spinal canal. It causes moderate central spinal canal stenosis and impinges upon the left L5 nerve r oot. A left lateral disc bulge also creates mild left neural foraminal narrowing. 2. Degenerative changes at L5-S1 but no significant central spinal canal or neural foraminal stenosis . DATA REPOSITORY:
== END ==
PROVIDERS: PCP Nurse Practitioner Family; Visit Provider Nurse Practitioner Family
DX: M54.41 Lumbago with sciatica, right side (principal)
CPT/HCPCS: 72148

== ENCOUNTER 2024-03-02 17:14 | Emergency (ER) | payer MEDICAID, SELFPAY ==
[2024-03-02 17:15] VITALS: BP 131/75; PULSE 83; RESP 15; TEMP 36.2; O2SAT 98
[2024-03-02 17:21] VITALS: BP 131/75; PULSE 83; RESP 15; TEMP 36.2; O2SAT 98
[2024-03-02 17:39] LABS: Bilirubin Negative (Negative); Blood Trace-intact (Negative); Clarity Clear (Clear); Glucose Negative (Negative); Ketones Negative (Negative); Leukocyte Esterase Moderate (Negative); Nitrite Negative (Negative); pH 6.5 (5-8)
[2024-03-02 17:49] LABS: Bacteria Moderate HPF (Negative); Epithelial Cells Moderate HPF (Negative); WBC 20-50 HPF (0-5)
[2024-03-02 17:50] LABS: C & S Indicated? No/Sq. Contamination; Casts Negative LPF (Negative); Crystals Negative HPF (Negative); Mucus Negative (Negative)
--- NOTE | 2024-03-02 17:54 | W.ED.GENAD ---
Discharge Plan Disposition Patient Disposition: Home Condition: Improving Discharge Details Clinical Impression: UTI (urinary tract infection) Primary Care Provider: Wolf Denise ED Provider: Dex Pastrana Home Meds and New Rx's Prescriptions: New sulfamethoxazole-trimethoprim [Bactrim DS] 800-160 mg tablet 1 tab PO BID 3 Days Qty: 6 0RF No Action calcium carbonate [Calcium 600] 600 mg calcium (1,500 mg) tablet 600 mg PO BID Qty: 90 3RF hydrocortisone acetate 1 % cream 1 applic topical TID PRN (Reason: skin irritation) Qty: 28.4 0RF fluconazole 150 mg tablet 150 mg PO ONCE Qty: 1 1RF Rx Instructions: as a single dose. Repeat in one week if needed estradiol [Estrace] 0.01 % (0.1 mg/gram) cream 1 g VG .COMPLEX Rx Instructions: 1 g vaginal three times weekly at bedtime.; for 14 days norethindrone acetate 5 mg tablet 5 mg PO DAILY Qty: 90 3RF Rx Instructions: 1 tab PO daily mupirocin 2 % ointment 1 applic topical TID Qty: 15 0RF cholecalciferol (vitamin D3) 2,000 unit capsule 4,000 unit PO DAILY Qty: 60 2RF cetirizine 10 mg tablet 10 mg PO DAILY PRN (Reason: allergy symptoms) Qty: 90 3RF cyclobenzaprine 10 mg tablet 10 mg PO TID PRN (Reason: muscle spasm) Qty: 60 0RF fluoxetine 10 mg capsule 10 mg PO DAILY Qty: 90 3RF fluticasone propionate [Flonase Allergy Relief] 50 mcg/actuation spray,suspension 2 spray intranasal DAILY PRN (Reason: nasal congestion) Qty: 16 11RF Rx Instructions: administer 2 sprays into each nostril ibuprofen 800 mg tablet 800 mg PO TID PRN (Reason: pain) Qty: 90 3RF ascorbic acid (vitamin C) [Vitamin C] 500 MG tablet,chewable 500 mg PO DAILY acetaminophen 500 mg tablet 1,000 mg PO TID Qty: 90 0RF HPI General Date/Time Provider Initiated Documentation: 03/02/24 17:19. HPI Narrative: 53-year-old female presents with bladder pressure and urinary frequency, feels that she has urinary tract infection and early yeast infection. No flank pain back pain nausea vomiting or other systemic signs of illness. Has had a reaction to cephalexin in the past. Has had good response to treatment with Bactrim. Related Data Home Medications ?Medication ?Instructions ?Recorded ?Confirmed ascorbic acid (vitamin C) 500 mg 500 mg PO DAILY 08/30/14 03/02/24 chewable tablet (Vitamin C) cholecalciferol (vitamin D3) 50 4,000 unit PO DAILY #60 caps 05/05/18 03/02/24 mcg (2,000 unit) capsule calcium carbonate (Calcium 600) 600 mg PO BID #90 tabs 08/20/21 03/02/24 estradiol 0.01% (0.1 mg/gram) 1 g vaginal .COMPLEX 08/31/21 03/02/24 vaginal cream (Estrace) hydrocortisone acetate 1 % topical 1 applic topical TID PRN skin 12/22/21 03/02/24 cream irritation #28.4 grams cetirizine 10 mg tablet 10 mg PO DAILY PRN allergy 07/29/22 03/02/24 symptoms #90 tabs acetaminophen 500 mg tablet 1,000 mg (2 x 500 mg) PO TID #90 07/19/23 03/02/24 tabs norethindrone acetate 5 mg tablet 5 mg PO DAILY #90 tabs 08/10/23 03/02/24 fluconazole 150 mg tablet 150 mg PO ONCE #1 tab 10/06/23 03/02/24 mupirocin 2 % topical ointment 1 applic topical TID #15 grams 11/20/23 03/02/24 cyclobenzaprine 10 mg tablet 10 mg PO TID PRN muscle spasm #60 12/27/23 03/02/24 tabs fluoxetine 10 mg capsule 10 mg PO DAILY #90 caps 01/24/24 03/02/24 fluticasone propionate 50 2 spray intranasal DAILY PRN nasal 01/24/24 03/02/24 mcg/actuation nasal congestion #16 grams spray,suspension (Flonase Allergy Relief) ibuprofen 800 mg tablet 800 mg PO TID PRN pain #90 tabs 01/24/24 03/02/24 sulfamethoxazole 800 1 tab PO BID 3 days #6 tabs 03/02/24 mg-trimethoprim 160 mg tablet (Bactrim DS) Previous Rx's ?Medication ?Instructions ?Recorded cholecalciferol (vitamin D3) 50 4,000 unit PO DAILY #60 caps 05/05/18 mcg (2,000 unit) capsule calcium carbonate (Calcium 600) 600 mg PO BID #90 tabs 08/20/21 hydrocortisone acetate 1 % topical 1 applic topical TID PRN skin 12/22/21 cream irritation #28.4 grams cetirizine 10 mg tablet 10 mg PO DAILY PRN allergy 07/29/22 symptoms #90 tabs acetaminophen 500 mg tablet 1,000 mg (2 x 500 mg) PO TID #90 07/19/23 tabs norethindrone acetate 5 mg tablet 5 mg PO DAILY #90 tabs 08/10/23 fluconazole 150 mg tablet 150 mg PO ONCE #1 tab 10/06/23 mupirocin 2 % topical ointment 1 applic topical TID #15 grams 11/20/23 cyclobenzaprine 10 mg tablet 10 mg PO TID PRN muscle spasm #60 12/27/23 tabs fluoxetine 10 mg capsule 10 mg PO DAILY #90 caps 01/24/24 fluticasone propionate 50 2 spray intranasal DAILY PRN nasal 01/24/24 mcg/actuation nasal congestion #16 grams spray,suspension (Flonase Allergy Relief) ibuprofen 800 mg tablet 800 mg PO TID PRN pain #90 tabs 01/24/24 sulfamethoxazole 800 1 tab PO BID 3 days #6 tabs 03/02/24 mg-trimethoprim 160 mg tablet (Bactrim DS) Allergies Allergy/AdvReac Type Severity Reaction Status Date / Time cephalexin Allergy Intermediate RASH, LEGS Verified 03/02/24 17:19 RED AND HOT latex Allergy Intermediate Skin Rash Verified 03/02/24 17:19 General Stated Complaint: Urinary CLAU: 4 Exam Narrative Exam Narrative: Alert oriented interactive Moist mucous membranes tolerating secretions Normal voice no respiratory distress Ambulatory without assistance no focal motor deficit No skin lesions or rashes noted Course Vital Signs Vital signs: Vital Signs Temperature 36.2 C L 03/02/24 17:15 Pulse 83 03/02/24 17:15 Respiratory Rate 15 03/02/24 17:15 Blood Pressure 131/75 03/02/24 17:15 Pulse Oximetry 98 03/02/24 17:15 Temperature 36.2 C L 03/02/24 17:21 Pulse 83 03/02/24 17:21 Respiratory Rate 15 03/02/24 17:21 Respiratory Effort Normal 03/02/24 17:21 Blood Pressure 131/75 03/02/24 17:21 Blood Pressure Position Sitting 03/02/24 17:21 Pulse Oximetry 98 03/02/24 17:21 Oxygen Delivery Method Room Air 03/02/24 17:21 Oxygen Flow Rate 0 03/02/24 17:15 Lab/Test Results Lab/Test Results: Laboratory Tests Range/Units 03/02/24 17:19 Urine Color (Yellow) Yellow Urine Clarity (Clear) Clear Urine pH (5-8) 6.5 Ur Specific Salyer (1.005-1.025) 1.020 Urine Protein (Neg-Trace) mg/dL Negative Urine Ketones (Negative) mg/dL Negative Urine Blood (Negative) Trace-intact H Urine Nitrite (Negative) Negative Urine Bilirubin (Negative) Negative Urine Urobilinogen (Up to 0.2) mg/dL 1.0 H Ur Leukocyte Esterase (Negative) Moderate H Urine RBC (0-2) HPF 5-10 H Urine WBC (0-5) HPF 20-50 H Ur Epithelial Cells (Negative) HPF Moderate Urine Crystals (Negative) HPF Negative Urine Bacteria (Negative) HPF Moderate Urine Casts (Negative) LPF Negative Urine Mucus (Negative) Negative Ur Culture Indicated? No/Sq. Contamination Urine Glucose (Negative) mg/dL Negative POC- Test(urine) Negative Medical Decision Making 53-year-old female presents with suprapubic discomfort and urinary frequency, feels that she is developing a urinary tract infection and believes she might have an early yeast infection, has had success in the past with Bactrim for treating her UTIs. No systemic signs of illness afebrile nontoxic nontachycardic hemodynamically stable no flank pain sweats chills nausea or vomiting. Leukoesterase positive urine on urinalysis. Will treat empirically with Bactrim will treat empirically with Diflucan. Home care instructions and return precautions given. Low suspicion for pyelonephritis nephrolithiasis pelvic inflammatory disease colitis enteritis or diverticulitis. Quality:SDOH Health Related Social Needs: No Data to Display PFSH All Active Problems (Updated 03/02/24 @ 17:56 by Dex Pastrana MD) UTI (urinary tract infection) (Acute) History of abnormal uterine bleeding (Acute) Vasomotor symptoms due to menopause (Acute) senior care (current) use of non-steroidal anti-inflammatories (nsaid) (Acute) Fatigue (Acute) Alcohol abuse (Chronic) 08/2021, 3beers/day Synovial cyst of right wrist (Acute) Malpositioned IUD (Chronic) extra uterine. noted in 2014 at time of appendectomy Peroneal tendinitis, right leg (Acute 03/25/19) s/p exploration and synovectomy Vaginal high risk human papillomavirus (HPV) DNA test positive (Acute 04/20/02) 2020 pos. HPV 2021. Nl Pap/Neg HPV Smoker (Acute) 07/2021, 1/2 ppd, about 15 pk yr hx Seasonal allergic rhinitis (Acute 12/01/17) Low back pain (Acute) MRI-L5-S1 disc bulge Attention deficit hyperactivity disorder, combined type (Acute) Anxiety (Chronic) Medical History Appendicitis Surgical History Ganglion cyst of tendon sheath of right hand S/P excision: 07/19/2023 Hx of removal of cyst left foot Hx of carpal tunnel repair Right Appendectomy Family History (Updated 02/26/24 @ 15:38 by Gissel Carty) Mother Pancreatic cancer Grandmother Breast cancer maternal Social History (Updated 02/26/24 @ 15:38 by Gissel Carty) Smoking/Tobacco Use Status: Current every day Tobacco Type: cigarettes Quit status: considering quitting Second Hand Exposure: Yes Smoking risk assessment performed?: Yes Alcohol Intake: current Alcohol Intake frequency: a few times a week Alcohol type: beer Drug use: Never Substance use type: does not use Counseling given: No Details: 1 beer last night Adopted: No Household members: spouse Housing: house Number of Children: 2 number of grandchildren: 1 Communication Needs: None Education Level: high school Do you need help understanding health information?: Never 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 Pets and animals: Yes Pets and animals: cat(s) and dog(s) Sexually active: No Do you think of yourself as: straight/heterosexual Current gender identity: female What is your relationship status?: How often do you talk on the phone with friends or family?: three or more times per week How often do you get together with friends or relatives?: three or more times per week How often do you attend holiness or scientologist services?: 1-3 times per year Do you belong to any clubs or organized social groups?: no Panel score (0-1 are the most socially isolated patients): 2 Duration: 45-60 minutes/day Glo/Druze: Religion Special glo needs: No Seatbelt use: always Helmet use: Yes Helmet use: always Drive intox or ride w/intox 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
[2024-03-02] MEDS: Fluconazole 150 MG TAB PO (18:03)
[2024-03-02] MEDS: Sulfameth/Trimeth DS TAB 1 TAB PO (18:03)
[2024-03-02 18:08] VITALS: PULSE 76; RESP 18; O2SAT 98
== END 2024-03-02 18:08 | disposition home or self-care (01) ==
LOC: ER 18:15
PROVIDERS: Emergency Provider Emergency Medicine; PCP Nurse Practitioner Family
DX: N39.0 Urinary tract infection, site not specified (principal); F17.210 Nicotine dependence, cigarettes, uncomplicated
CPT/HCPCS: 81025; 99283; 81003; 81015

== ENCOUNTER 2024-03-06 02:31 | Outpatient (CLI) | payer MEDICAID, SELFPAY ==
--- NOTE | 2024-03-06 07:30 | DI.MAMMO_ITS ---
Exam(s) MAMMO SCREENING EXAM: MAMMO SCREENING CLINICAL HISTORY: screening,z12.39 TECHNIQUE: Bilateral full field digital CC and MLO mammographic images were obtained with 3D tomosyn thesis and utilizing computer aided detection (CAD). COMPARISON: Available for comparison. FINDINGS: Masses/Architectural Distortion: There is an ovoid density in the upper left breast on the MLO view. This may be vascular in nature but a spot compression views requested for further evaluation. No ar eas of architectural distortion are seen. Microcalcifications: No suspicious pleomorphic-type are seen. Skin Thickening/Nipple Retraction: None. IMPRESSION: 1. Spot compression view of an ovoid density in the upper left breast on the MLO view. 2. Ultrasound may be indicated at that time. BI-RADS Category 0 - Incomplete: Need additional imaging evaluation Breast Density - Category B - Scattered areas of fibroglandular density Breast density category C or D implies that the patient has dense breast tissue. Dense breast tissue is very common and is not abnormal but dense breast tissue can make it harder to find cancer on a ma mmogram. Also, dense breast tissue may increase their breast cancer risk. This information about the result of the mammogram report was provided to the patient to raise their awareness. Use this report when you speak with the patient about their risks for breast cancer, which includes their family hist ory. At that time, you may recommend for more screening tests (Ultrasound or MRI) as they might be us eful based on their risk. A negative radiographic report should not delay biopsy if a dominant or clinically suspicious mass is present. Up to ten percent of cancers are not identified on mammography. A negative report may reinforce clinical impression. Adenosis and dense breasts may obscure an underlying neoplasm. False positive reports average 6 to 10%. Patient will receive a letter notifying them of these results.
== END 2024-03-06 02:51 ==
LOC: DI 02:31
PROVIDERS: PCP Nurse Practitioner Family; Visit Provider Nurse Practitioner Family
DX: Z12.31 Encounter for screening mammogram for malignant neoplasm of breast (principal)
CPT/HCPCS: 77063; 77067

== ENCOUNTER 2024-03-11 01:48 | Outpatient (CLI) | payer MEDICAID, SELFPAY ==
--- NOTE | 2024-03-11 09:51 | DI.MAMMO_ITS ---
Exam(s) MG MAMMO SCREEN CALL BACK UNI US BREAST LT COMPLETE EXAM: MG MAMMO SCREEN CALL BACK UNI-LEFT AND COMPLETE LEFT BREAST ULTRASOUND CLINICAL HISTORY: OVOID DENSITY UPPER LEFT BREAST R92.8 ABNL MAMMO. TECHNIQUE: Unilateral LEFT BREAST spot mammographic images obtained with 3D tomosynthesisand [id number] ng computer aided detection (CAD). . Complete LEFT breast Ultrasound was also performed, including all 4 quadrants, the retroareolar regio n, and the ipsilateral axilla. COMPARISON: Prior mammograms were reviewed. This additional imaging was performed due to findings described on the recent screening mammogram of 03/06/2024. FINDINGS: DIAGNOSTIC MAMMOGRAM: Additional mammographic views performed todayrender this area less concerning. COMPLETE LEFT BREAST ULTRASOUND: Ultrasound performed today reveals finding at 2 o'clock position which is probably benign lymph node and probably corresponds to the finding on the mammogram. At the 10 o'clock position there are few small microcysts noted. Largest of these measures approxima tely 5 mm.. Scanning of the ipsilateral axilla reveals no significant adenopathy. IMPRESSION: 1. Benign-appearing breast findings Appropriate follow-up as discussed by myself patient today is repeat left breast mammogram in 6 month s sure stability.. The patient was informed of these findings and recommendations by myself prior to leaving the departm ent today. BI-RADS Category 3 - 6 month - Probably Benign Finding: Recommend follow-up mammography in 6 months Breast Density - Category B - Scattered areas of fibroglandular density Breast density Category C or D implies that the patient has dense breast tissue. Dense breast tissue can make it harder to find cancer on a mammogram. Dense breast tissue is also associated with an incr eased risk of breast cancer. This information about the result of the mammogram report was provided to the patient to raise their awareness. Use this report when you speak with the patient about their risks for breast cancer, which includes their family history. At that time, you may recommend additional screening tests (Ultrasoun d or MRI) as these tests may add significant information. A negative radiographic report should not delay biopsy if a dominant or clinically suspicious mass is present. Up to ten percent of cancers are not identified on mammography. A negative report may reinforce clinical impression. Adenosis and dense breasts may obscure an underlying neoplasm. False positive reports average 6 to 10%. Patient will receive a letter notifying them of these results.
== END 2024-03-11 02:08 ==
LOC: DI 01:48
PROVIDERS: PCP Nurse Practitioner Family; Visit Provider Nurse Practitioner Family
DX: Z12.31 Encounter for screening mammogram for malignant neoplasm of breast (principal); R92.8 Other abnormal and inconclusive findings on diagnostic imaging of breast
CPT/HCPCS: 76642; 77063; 77067

== ENCOUNTER 2024-11-27 03:13 | Outpatient (CLI) | payer MEDICAID, SELFPAY ==
--- NOTE | 2024-11-27 14:10 | DI.MRI_ITS ---
Exam(s) MR LUMBAR SPINE WO EXAM: MR LUMBAR SPINE WO CLINICAL HISTORY: Failing PT/Referred need new image, CHRONIC LYNNE LBP, M54.50, G89.29. TECHNIQUE: Multiplanar multisequence MRI of the Lumbar spine was performed. COMPARISON: Prior MR LUMBAR SPINE WO from 09/28/2023 There are no plain films lumbar spine available for review at the time of this MRI interpretation. FINDINGS: Conus medullaris is at normal level. There is no evidence of conus mass nor subjacent clumping of intrathecal nerve roots to suggest arachnoiditis. The distal thecal sac appears unremarkable.There is no evidence of significant size Tarlov intrasacral cysts nor other significant findings within the sacral canal Bones:There are no fractures nor ominous osseous lesions in the lumbar vertebral bodies and visualized sacrum. With respect to the individual levels... T12-L1: Unremarkable L1-2: Normal disc height and signal. No disc herniation nor central canal stenosis.No foraminal stenosis L2-3: Normal disc height. No disc herniation nor central canal stenosis.No foraminal stenosis.No facet arthropathy. L3-4: Normal disc height. There is mild relatively symmetrical annular bulging but no dominant disc herniation or central canal stenosis. Also no significant foraminal stenosis. Facet joints unremarkable. L4-5: Normal disc height and signal. Posteriorly there is central subligamentous annular bulging. Also again noted is the previously described degenerative synovial cyst coming off the anteromedial aspect of the left facet joint at this level and measuring approximately 8x11 mm, impressing upon the l eft side of the thecal sac in the left lateral recess and mild left-sided foraminal stenosis. There is no foraminal stenosis on the opposite-right side. There is element of central canal stenosis again noted which is related to the above findings +developmental short AP dimensions of the pedicles as well as the annular bulging. L5-S1: Normal disc height in signal. Posteriorly there is no disc herniation or central canal stenosis. Some degenerative changes noted in the right facet joint. Left facet joint appears unremarkable. No evidence of significant foraminal stenosis on the left side at this level. Mild foraminal stenosis on the right side which is caused by the asymmetric right-sided facet joint arthropathy. Soft tissues: paraspinal soft tissues appear unremarkable. IMPRESSION: 1. 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 This synovial cyst has slightly further increased in size when compared to the prior MRI study of September 2023. There is also some mild annular bulging at this level. 2. Milder finding at L5-S1 level, as described above DATA REPOSITORY:
== END 2024-11-27 03:33 ==
LOC: DI 03:14
PROVIDERS: PCP Nurse Practitioner Family; Visit Provider Nurse Practitioner Family
DX: M54.50 Low back pain, unspecified (principal); G89.29 Other chronic pain; M54.41 Lumbago with sciatica, right side
CPT/HCPCS: 72148